=== PATIENT | female | born 1975 ===

== ENCOUNTER → 2021-11-07 | Outpatient (CLI) | payer OTHER ==
--- NOTE | 2021-11-07 17:24 | Diagnostic Imaging Report ---
CLINICAL INDICATION: Patient with pituitary adenoma. EXAM: MRI of the brain/pituitary performed without IV contrast. Multiplanar and multisequence imaging is obtained. COMPARISON: None. FINDINGS: There is no evidence of acute cerebral infarct, intracranial hemorrhage, or gross mass effect. There is widened configuration of the sella with flattened suspected residual pituitary gland. The infundibulum is slightly deviated toward the left. There is soft tissue thickening in the right sellar region medial to the cavernous sinus. Unknown if this is related to residual mass. This area measures roughly 12 mm x 6 mm x 9 mm (AP x Trans x CC). The remainder of the brain parenchyma is unremarkable. The brain parenchymal volume appears appropriate for patient's age. There is normal aggarwal-white matter distinction. There is no significant midline shift or herniation. The hoopa of Yoder vascular structures show no gross abnormality as visualized. There is no evidence of hydrocephalus. The basal cisterns are unremarkable. The skull, extracranial soft tissue, and orbits are unremarkable. There is minimal mucosal thickening involving the right maxillary sinus and ethmoid sinus. Temporal bones show no significant abnormality. IMPRESSION: 1: There is widened configuration of the sella with flattened appearance of tissue in the pituitary gland, which may represent residual pituitary tissue with deviation of the infundibulum toward the left. There is an area of soft tissue thickening in the right lateral aspect of the sella and medial to the cavernous carotid. Unknown if this represents residual mass or scar tissue. MRI of the pituitary with contrast would also help better evaluate this area for future surveillance. Comparison to prior MRI of the brain/pituitary would help better evaluate. 2: The remainder of this exam is unremarkable. Dictated by: Dictated on workstation # [id number]
== END ==
LOC: RAD 14:00
PROVIDERS: ATTEND Pediatrics
DX: D35.2 Benign neoplasm of pituitary gland (principal)
CPT/HCPCS: 70551

== ENCOUNTER → 2022-02-27 | Outpatient (CLI) | payer OTHER ==
[~2022-02-27] MED LIST: GADOTERATE 0.5 MMOL/ML (CLARISCAN) 15 ML VIAL IV ONE; GADOTERATE 0.5 MMOL/ML (CLARISCAN) 20 ML VIAL IV ONE
--- NOTE | 2022-02-27 16:07 | Diagnostic Imaging Report ---
EXAM: MRI brain pituitary w/wo con INDICATION: Pituitary tumor. COMPARISON: 11/07/2021. FINDINGS: There are postop findings of a transsphenoidal pituitary resection. The configuration of the enhancing soft tissue in the sella and right cavernous sinus is similar to the prior exam, given contrast was not administered on the prior. This includes some hypoenhancing soft tissue in the right sella and cavernous sinus measuring approximately 1.5 x 0.8 cm. This encompasses the right cavernous internal carotid artery approximately 270 degrees. There is normal flow void in the right internal carotid artery. Stable leftward deviation of the pituitary infundibulum with thickening. No mass effect upon the optic chiasm. No other abnormal intracranial signal or enhancement. No restricted water diffusion. No hemosiderin deposition or evidence of intracranial hemorrhage. Normal morphology of the major midline structures and cerebellar pontine angle. Cerebellar tonsillar ectopia measuring approximately 0.6 cm. Normal intracranial flow voids. No hydrocephalus or extra-axial fluid collection. The orbits are negative. Paranasal sinuses and mastoids are unremarkable. Normal bone marrow signal. IMPRESSION: 1. Postoperative findings of a transsphenoidal pituitary resection. 2. There remains abnormal enhancing soft tissue in the right sella and right cavernous sinus suspicious for residual pituitary adenoma. This encases the right cavernous internal carotid artery, approximately 270 degrees. The right internal carotid artery maintains a normal flow void. 3. Cerebellar tonsillar ectopia measuring up to 0.6 cm can be seen with a Chiari I malformation. Recommend correlation with clinical findings. Dictated by: Dictated on workstation # [id number]
== END ==
LOC: RAD 13:22
PROVIDERS: ATTEND Pediatrics
DX: D49.7 Neoplasm of unspecified behavior of endocrine glands and other parts of nervous system (principal); G93.5 Compression of brain; Q04.8 Other specified congenital malformations of brain
CPT/HCPCS: 70553

== ENCOUNTER → 2022-11-03 | Outpatient (CLI) | payer SELFPAY ==
[~2022-11-03] MED LIST changes: -GADOTERATE 0.5 MMOL/ML (CLARISCAN) 20 ML VIAL IV ONE
--- NOTE | 2022-11-03 16:44 | Diagnostic Imaging Report ---
EXAMINATION: MRI brain and pituitary performed with and without contrast. INDICATION: History of pituitary tumor with prior surgical resection. COMPARISON: 02/27/2022. FINDINGS: When compared to the prior examination, there has not been interval change in the appearance of the sella and the cavernous sinuses. There is residual enhancing tumor within the right cavernous sinus. The maximum transverse dimensions of the base of this process unchanged at 14 mm. Maximum craniocaudal dimension is 13 mm with [id number] dimension approximately 9 mm. A small degree of residual enhancement just anterior to the pituitary infundibulum is unchanged. There is stable deviation of the infundibulum to the left. There is no mass effect exerted on the optic chiasm. Both of the internal carotid artery flow voids maintain normal caliber. Diffusion series demonstrates no restriction. There are no findings of acute ischemia. There is no acute hemorrhage. There is no intracranial mass effect or shift. There is no hydrocephalus. There is no extra-axial collection. Saucedo and white matter signal characteristics are normal. The posterior fossa is unchanged. Cerebellar tonsillar ectopia is stable. There are previous operative changes related to transsphenoidal approach to the sella. The paranasal sinuses are clear. The orbits are normal. The mastoid air cells are clear. The major expected vascular flow voids are maintained. IMPRESSION: 1. Stable postsurgical changes of a prior transsphenoidal approach to the sella. Residual enhancing tumor in the right cavernous sinus has not appreciably changed and both ICA flow voids maintain appropriate caliber. The residual enhancement along the floor of the sella may reflect residual pituitary gland. There is stable deviation of the infundibulum to the left. There is no mass effect on the optic chiasm. There are no findings to suggest progression. 2. No MR findings of a new or acute intracranial abnormality. Dictated by: Dictated on workstation # [id number]
== END ==
LOC: RAD 14:28
PROVIDERS: ATTEND Neurological Surgery
DX: D35.2 Benign neoplasm of pituitary gland (principal); Z98.890 Other specified postprocedural states
CPT/HCPCS: 70553